=== PATIENT | male | born 1965 | race Caucasian/White ===

== ENCOUNTER 2019-10-22 11:24 | Emergency (ER) | payer BC ==
[~2019-10-22] VITALS: Ht 167.6 cm; Wt 72.6 kg
[2019-10-22 13:16] VITALS: BP 115/81
--- NOTE | 2019-10-22 14:21 | PHYS DOC ---
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 He states that the paperwork states that the Lazar catheter needs to be removed within 5-7 days. Patient is here today because he wants a Lazar catheter removed. Review of Systems Review of Systems : lazar catheter removal. Denies dysuria or hematuria [] All other systems were reviewed and found to be within normal limits, except as documented in this note. Allergies Allergies Allergies Coded Allergies Type Severity Reaction Last Updated Verified Penicillins Allergy Unknown 10/22/19 Yes Physical Exam Physical Exam Constitutional: Well developed, well nourished, no acute distress, non-toxic appearance. [] HENT: Normocephalic, atraumatic, bilateral external ears normal, oropharynx moist, no oral exudates, nose normal. [] Eyes: PERRLA, EOMI, conjunctiva normal, no discharge. [] Neck: Normal range of motion, no tenderness, supple, no stridor. [] Cardiovascular:Heart rate regular rhythm, no murmur [] Lungs & Thorax: Bilateral breath sounds clear to auscultation [] Abdomen: Bowel sounds normal, soft, no tenderness, no masses, no pulsatile masses. [] Skin: Warm, dry, no erythema, no rash. [] Back: No tenderness, no CVA tenderness. [] Extremities: No tenderness, no cyanosis, no clubbing, ROM intact, no edema. [] Neurologic: Alert and oriented X 3, normal motor function, normal sensory function, no focal deficits noted. [] Psychologic: Affect normal, judgement normal, mood normal. Normal physical exam[] Current Patient Data Vital Signs Vital Signs Date Time Temp Pulse Resp B/P (MAP) Pulse Ox O2 Delivery O2 Flow Rate FiO2 10/22/19 13:16 97.4 80 16 115/81 (92) 97 Room Air 97.4 EKG EKG [] Radiology/Procedures Radiology/Procedures [] Course & Med Decision Making Course & Med Decision Making Patient denies any dysuria, back pain, nausea, abdominal pain, vomiting, fever, hematuria. Abdomen is soft and nontender. Vital signs within normal limits. Alert and oriented. Ambulatory with a steady gait. Speaks in full clear sentences. Skin pink warm and dry. The nurse removed the Lazar catheter and patient is told that he needs to urinate before leaving the facility. Patient was able to urinate 150ml. Patient is discharged home. Dragon Disclaimer Dragon Disclaimer This electronic medical record was generated, in whole or in part, using a voice recognition dictation system. Departure Departure Impression: Primary Impression: Encounter for removal of urinary catheter Disposition: HOME, SELF-CARE Condition: STABLE Referrals: NO PCP (PCP) Patient Instructions: Medical Screening Exam Additional Instructions: Follow-up her primary care provider or the urologist. Drink plenty of fluids. EVER FERNANDEZ APRN Oct 22, 2019 14:21
== END 2019-10-22 15:18 | disposition home or self-care (01) ==
LOC: ER 11:24
DX: Z46.6 Encounter for fitting and adjustment of urinary device (principal); Z98.890 Other specified postprocedural states; Z88.0 Allergy status to penicillin
CPT/HCPCS: 99281